=== PATIENT | male | born 1960 | race Caucasian/White ===

== ENCOUNTER 2018-03-31 12:30 | Emergency (ER) | payer BC, MEDICAID ==
[~2018-03-31] VITALS: Ht 172.7 cm; Wt 70.0 kg
[2018-03-31] MEDS ORDERED: TRAMADOL 50MG TABLET PO ONE (12:45)
[2018-03-31] MEDS ORDERED: ONDANSETRON 4MG ODT PO ONE (12:45)
[2018-03-31] MEDS ORDERED: HYDROCODONE/ACETAMINOPHEN 5/325MG TABLET PO ONE (13:45)
[2018-03-31] MEDS ORDERED: IBUPROFEN 600MG TABLET PO ONE (13:45)
[2018-03-31 14:50] VITALS: BP 129/88
== END 2018-03-31 14:52 | disposition home or self-care (01) ==
LOC: ER 12:30
DX: S02.40EA Zygomatic fracture, right side, initial encounter for closed fracture (principal); S00.532A Contusion of oral cavity, initial encounter; R03.0 Elevated blood-pressure reading, without diagnosis of hypertension; W01.198A Fall on same level from slipping, tripping and stumbling with subsequent striking against other object, initial encounter; Y93.89 Activity, other specified; Y92.211 Elementary school as the place of occurrence of the external cause; Y99.0 Civilian activity done for income or pay; Z98.890 Other specified postprocedural states
CPT/HCPCS: 70450; 70486; 99285; Q0162